=== PATIENT | female | born 1985 | race Caucasian/White ===

== ENCOUNTER → 2023-03-11 | Outpatient (CLI) | payer BC, OTHER ==
--- NOTE | 2023-03-11 17:41 | Diagnostic Imaging Report ---
INDICATION: Pain, swelling. COMPARISON: None available. TECHNIQUE: Four radiographs of the bilateral hands dated 03/11/2023. FINDINGS: No acute fracture or dislocation. No destructive osseous process. Joint spaces are well maintained. Carpal alignment is well maintained. No suspicious radiopaque foreign body. IMPRESSION: Unremarkable examination without acute osseous abnormality. Dictated by: Dictated on workstation # [id number]
--- NOTE | 2023-03-11 17:44 | Diagnostic Imaging Report ---
INDICATION: Pain COMPARISON: None available. TECHNIQUE: 2 radiographs of the left clavicle dated 03/11/2023. FINDINGS: No acute fracture or dislocation. No destructive osseous process. The acromioclavicular joint is unremarkable. No suspicious radiopaque foreign body. IMPRESSION: Unremarkable examination without acute osseous abnormality. Dictated by: Dictated on workstation # [id number]
== END ==
LOC: RAD 16:20
PROVIDERS: ATTEND Nurse Practitioner Family
DX: M25.512 Pain in left shoulder (principal); M25.511 Pain in right shoulder
CPT/HCPCS: 73000